=== PATIENT | male | born 1980 | race Two or more races ===

== ENCOUNTER 2017-03-04 10:08 | Emergency (ER) | payer MEDICAID ==
[~2017-03-04] VITALS: Ht 167.6 cm; Wt 145.1 kg
[2017-03-04 10:17] VITALS: BP 117/71
== END 2017-03-04 10:54 | disposition home or self-care (01) ==
LOC: ER 10:08
DX: F31.9 Bipolar disorder, unspecified (principal); E11.9 Type 2 diabetes mellitus without complications; Z76.0 Encounter for issue of repeat prescription